=== PATIENT | female | born 1990 | race Caucasian/White ===

== ENCOUNTER 2019-01-20 21:31 | Inpatient (IN) | payer OTHER ==
--- NOTE | 2018-01-22 21:30 | NUR ---
STATED ABLE TO PASS GAS. ENCOURAGE TO AMBULANCE MORE. Addendum: 01/23/19 at 0302 by Umm Thorpe LVN PLEASE DISREGARD THIS CHARTING, WRONG TIME AND DATE OF ENTRY.
[~2019-01-20] VITALS: Ht 157.5 cm; Wt 76.2 kg
[2019-01-20 21:45] VITALS: BP 132/90
--- NOTE | 2019-01-20 21:45 | NUR ---
TO LOBBY A/W BED AMBULATORY
--- NOTE | 2019-01-20 22:25 | NUR ---
PT TAKEN TO BED 3
--- NOTE | 2019-01-20 22:37 | NUR ---
28/F PRESENTS TO ED, C/O EPIGASTRIC PAIN, X2 DAYS. DENIES FEVER/CHILLS, N/V/D, CONSTIPATION. PT ALSO C/O CHRONIC MID AND LOWER BACK PAIN, X1 YEAR, WORSENING RECENTLY. PT AWAKE AND ALERT, SKIN NORMAL COLOR WARM AND DRY, RR EVEN AND UNLABORED. ABD SOFT ROUND TENDER TO EPIGASTRIC AREA. DENIES HX OR RX.
[2019-01-20 23:03] LABS: APPEARANCE,URINE CLEAR (CLEAR); BILIRUBIN,URINE NEGATIVE (NEGATIVE); BLOOD, URINE 3+ (NEGATIVE); COLOR,URINE YELLOW (YELLOW); LEUKOCYTE ESTERASE ,URINE NEGATIVE (NEGATIVE); NITRITE, URINE NEGATIVE (NEGATIVE); UGLUCOSE NEGATIVE (NEGATIVE)
[2019-01-20 23:18] LABS: WBC,URINE 0-5 /HPF (0-5)
--- NOTE | 2019-01-20 23:26 | NUR ---
PT LAYING IN BED, RR EVEN AND UNLABORED. VSS. REPORTS TOLERABLE EPIGASTRIC AND BACK PAIN AT THIS TIME. ALL NEEDS MET AT THIS TIME.
--- NOTE | 2019-01-20 23:26 | NUR ---
Dr. Newby examining patient.
[2019-01-20] MEDS ORDERED: MORPHINE SULFATE 4 MG/ML SYR IVP ONE (23:35)
[2019-01-20] MEDS ORDERED: ONDANSETRON 4 MG/2 ML VIAL IVP ONE (23:35)
[2019-01-20 23:49] LABS: BASOPHILS % (AUTO) 0.4 % (0.0-2.0); EOSINOPHILS # (AUTO) 0.2 K/uL (0-0.4); EOSINOPHILS % (AUTO) 1.8 % (0.0-4.0); HEMATOCRIT 40.5 % (36-48); HEMOGLOBIN 13.7 g/dL (12.0-16.0); LYMPHOCYTES # (AUTO) 2.9 K/uL (2.5-16.5); LYMPHOCYTES % (AUTO) 34.1 % (20.5-51.1); MEAN CORPUSCULAR HEMOGLOBIN 31 pg (27-31); MEAN CORPUSCULAR HGB CONC 34 g/dL (33-37); MEAN CORPUSCULAR VOLUME 90.6 fL (80-94); MONOCYTES # (AUTO) 0.5 K/uL (0.8-1.0); MONOCYTES % (AUTO) 6.1 % (1.7-9.3); NEUTROPHILS # (AUTO) 4.9 K/uL (1.8-7.7); NEUTROPHILS % (AUTO) 57.6 % (42.2-75.2); PLATELET COUNT (AUTO) 199 K/uL (140-450); RED BLOOD CELL COUNT(AUTO) 4.47 MIL/uL (4.20-5.40); RED CELL DISTRIBUTION WIDTH 12.6 % (11.6-13.7); WHITE BLOOD COUNT (AUTO) 8.5 K/uL (4.8-10.8)
[2019-01-20 23:58] LABS: CARBON DIOXIDE 28.6 mmol/L (21-32); CREATININE 0.6 mg/dL (0.6-1.3); POTASSIUM 4.6 mmol/L (3.5-5.1)
[2019-01-21 00:04] LABS: ALBUMIN 4.2 g/dL (3.4-5.0); TOTAL BILIRUBIN 0.6 mg/dL (0.0-1.0)
[2019-01-21] MEDS ORDERED: PIPERACILLIN/TAZOBACTAM 3.375 GM in DEXTROSE 5% 50 ML IV ONE (01:05)
[2019-01-21] MEDS ORDERED: PIPERACILLIN/TAZOBACTAM 3.375 GM VIAL IV ONE ×3 (01:08→05:28)
[2019-01-21] MEDS: DEXT 5% / NACL 0.45% 1,000 ML IV SCH ×3 (01:37→19:25)
--- NOTE | 2019-01-21 01:50 | NUR ---
PT LAYING IN BED, RR EVEN AND UNLABORED. REPORTS 4/10 EPIGASTRIC PAIN AT THIS TIME, WILL ENDORSED TO MST RN. ALL NEEDS MET.
[2019-01-21] MEDS ORDERED: POTASSIUM CHLORIDE 10 MEQ TABER PO PRN (01:55)
[2019-01-21] MEDS ORDERED: LORazepam 2 MG/ML VIAL IVP PRN (01:55)
[2019-01-21] MEDS ORDERED: ACETAMINOPHEN 325 MG TAB PO PRN (01:55)
[2019-01-21] MEDS ORDERED: ZOLPIDEM 5 MG TAB PO PRN (01:55)
[2019-01-21] MEDS ORDERED: MAG SULF 2000 MG/WATER PREMIX 50 ML IV PRN (01:55)
[2019-01-21] MEDS ORDERED: MAGNESIUM OXIDE 400 MG TAB PO PRN (01:55)
[2019-01-21] MEDS ORDERED: ONDANSETRON 4 MG/2 ML VIAL IVP PRN (01:55)
--- NOTE | 2019-01-21 01:55 | NUR ---
Patient will be admitted to care of DR FORD. Admited to [facility]. Will go to room 105A. Belongings list completed. Report to OTILIA BAGLEY.
[2019-01-21 02:00] VITALS: BP 135/80
--- NOTE | 2019-01-21 02:02 | NUR ---
RECEIVED FROM ER PER WHEELCHAIR ALERT AND ORIENTED X 4. ROM X 4. CLEAR SPEECH. NO OPEN AREAS TO SKIN. DX. OF CHOLECYSTITIS/CHOLELITHIASIS. CARE PLANS FOR THE NIGHT DISCUSSED WITH HER AND CALL LIGHT USE EXPLAINED. PAIN AT THIS TIME BEARABLE. NO MEDICAL HISTORY. AFEBRILE.
--- NOTE | 2019-01-21 03:10 | NUR ---
PT. SEEN WALK TO RESTROOM INSIDE ROOM WELL WITH NO ASSIST. ROM X 4. REMINDED TO USE CALL LIGHT FOR NAY HELP SHE MAY NEED OR IF IN PAIN. "OK"
[2019-01-21] MEDS: MORPHINE SULFATE 2 MG/ML SYR IVP PRN ×3 (04:28→22:21)
--- NOTE | 2019-01-21 04:28 | NUR ---
PT. REQUESTED FOR PAIN RELIEVER. MEDICATED ORDERED. SLEPT AFTER. NO FURTHER COMPLAINTS DONE. REMINDED NPO EXCEPT MEDICATIONS.
--- NOTE | 2019-01-21 06:57 | NUR ---
SLEEPING BUT WAKES UP EASILY WHEN CALLED BY NAME. A/OX4. ROM X 4. CLEAR SPEECH. WILL ENDORSE TO AM RN FOR CONTINUITY OF CARE. DX. ACUTE CHOLECYSTITIS. WITH SURGICAL CONSULT . Susi OROZCO. IVF SITE INTACT AND NO INFILTRATION. CALL LIGHT WITH IN REACH AT ALL TIMES. ROM X 4.
[2019-01-21] MEDS ORDERED: PIPERACILLIN/TAZOBACTAM 3.375 GM in DEXTROSE 5% 50 ML IV SCH (07:00)
--- NOTE | 2019-01-21 07:00 | NUR ---
RECEIVED REPORT FROM PRODUCT FINISHER NURSE. PT IS AAOX4, NO C/O PAIN AT THIS TIME. IV ON LT AC 20 GA RUNNING IVF PER ORDER. RESPIRATIONS EVEN AND UNLABORED ON RA. ABD SOFT, ACTIVE BS. PT IS AWARE THAT SHE CANNOT HAVE FOOD/NOTHING BY MOUTH EXCEPT MEDICATIONS UNTIL COMES TO DO ASSESSMENT. SKIN IS INTACT, WARM TO TOUCH. PT IS ON FALL RISK PRECAUTIONS, SAFETY MEASURES IN PLACE, CALL LIGHT WITHIN REACH. REVIEWED POC WITH PT, PT VERBALIZED UNDERSTANDING.
[2019-01-21 08:00] VITALS: BP 121/79
--- NOTE | 2019-01-21 08:08 | NUR ---
ADMINISTERED MORPHINE PER ORDER FOR LEVEL 7/10 PAIN TO ABDOMEN, WILL REASSESS WITHIN 1 HOUR.
--- NOTE | 2019-01-21 08:19 | NUR ---
PATIENT HAS BEEN SCREENED AND CATEGORIZED LOW NUTRITION RISK. PATIENT WILL BE SEEN WITHIN 7 DAYS OF ADMISSION. 01/27/[address]
--- NOTE | 2019-01-21 10:05 | NUR ---
PAGED DR. FORD TO GIVE REPORT REGARDING PT'S CONDITION. AWAITING CALL BACK.
[2019-01-21] MEDS ORDERED: HYDROmorphone 2 MG TAB PO PRN (10:45)
[2019-01-21] MEDS: HYDROmorphone PFS 2 MG/ML SYR IVP PRN (10:46)
[2019-01-21] MEDS: PIPERACILLIN/TAZOBACTAM 3.375 GM in DEXTROSE 5% 50 ML IV SCH ×2 (12:49→21:38)
--- NOTE | 2019-01-21 12:50 | NUR ---
ADMINISTERED ZOSYN, PT IS AWARE OF INDICATIONS AND POTENTIAL SIDE EFFECTS. GIVEN ZOFRAN PER ORDER D/T PT'S FEELINGS OF NAUSEA AND VOMITING. WILL REASSESS WITHIN 1 HOUR.
--- NOTE | 2019-01-21 14:54 | NUR ---
Building Maintenance Technician Note: I called patient's son David Campos to obtain information about patient for assessment/discharge. David requested I call him back at 3:30pm today. Addendum: 01/22/19 at 1614 by Areli Leiva SS please disregard above note, wrong patient.
--- NOTE | 2019-01-21 15:50 | NUR ---
PT REPORTS THAT SHE VOMITED 3 TIMES, COLLECTED 100 ML OF DARK, GREEN EMESIS. WILL NOTIFY PHYSICIAN. GIVEN ORAL CARE. PT HAS NO C/O PAIN AT THIS TIME.
[2019-01-21 16:00] VITALS: BP 144/91
--- NOTE | 2019-01-21 17:40 | NUR ---
RECEIVED CALL FROM DR. OROZCO, GIVEN UPDATES ON PT'S CONDITION. PER PHYSICIAN, WILL SEE PT LATER TONIGHT.
--- NOTE | 2019-01-21 19:05 | NUR ---
ENDORSED PT TO SUPERVISOR LOCOMOTIVE NURSE. PT HAS NO SIGNS OF DISTRESS AT THIS TIME.
--- NOTE | 2019-01-21 19:06 | NUR ---
RECD. RESTING IN BED, AWAKE, AOX4. RESPIRATION EVEN AND UNLABORED. IV OF D51/2 NS AT 85 ML/HR INFUSING LEFT AC G20. AMBULATING INDEPENDENTLY TO BR. NO N/V NOTED. ABDOMINAL PAIN 04/03, TOLERABLE BUT WILL CALL NURSE WHEN PAIN INCREASES. PLAN OF CARE FOR THE SHIFT DISCUSSED. VERBALIZED UNDERSTANDING. FAMILY AT THE BEDSIDE.
--- NOTE | 2019-01-21 21:47 | NUR ---
Patient's Plan of Care was discussed and reviewed with POSTAL SERVICE MAIL PROCESSOR: RAVEN DIEHL
[2019-01-21 22:07] VITALS: BP 125/76
--- NOTE | 2019-01-21 23:40 | NUR ---
DR. OROZCO CAME AND SPOKE WITH PATIENT. VERBALLY ORDERED PLATIENT CANE HAVE LOW FAT DINNER AND NPO PAST MIDNIGHT.
--- NOTE | 2019-01-22 00:25 | NUR ---
UNABLE TO SLEEP, MEDICATED WITH AMBIEN 5 MG PO.
--- NOTE | 2019-01-22 01:25 | NUR ---
STILL AWAKE, ADVISED TO GO TO SLEEP.
--- NOTE | 2019-01-22 02:00 | NUR ---
SLEEPING COMFORTABLY IN BED.
[2019-01-22] MEDS: PIPERACILLIN/TAZOBACTAM 3.375 GM in DEXTROSE 5% 50 ML IV SCH ×3 (05:27→22:25)
[2019-01-22] MEDS: DEXT 5% / NACL 0.45% 1,000 ML IV SCH ×2 (05:51→12:48)
[2019-01-22 05:56] VITALS: BP 109/67
[2019-01-22 06:20] LABS: BASOPHILS % (AUTO) 0.3 % (0.0-2.0); EOSINOPHILS # (AUTO) 0.1 K/uL (0-0.4); HEMATOCRIT 38.8 % (36-48); LYMPHOCYTES # (AUTO) 2.4 K/uL (2.5-16.5); LYMPHOCYTES % (AUTO) 33.5 % (20.5-51.1); MEAN CORPUSCULAR HEMOGLOBIN 31 pg (27-31); MEAN CORPUSCULAR HGB CONC 33 g/dL (33-37); MEAN CORPUSCULAR VOLUME 91.7 fL (80-94); MONOCYTES # (AUTO) 0.5 K/uL (0.8-1.0); MONOCYTES % (AUTO) 6.5 % (1.7-9.3); NEUTROPHILS # (AUTO) 4.1 K/uL (1.8-7.7); NEUTROPHILS % (AUTO) 57.7 % (42.2-75.2); PLATELET COUNT (AUTO) 199 K/uL (140-450); RED BLOOD CELL COUNT(AUTO) 4.24 MIL/uL (4.20-5.40); RED CELL DISTRIBUTION WIDTH 12.6 % (11.6-13.7); WHITE BLOOD COUNT (AUTO) 7.2 K/uL (4.8-10.8)
[2019-01-22] MEDS: MORPHINE SULFATE 2 MG/ML SYR IVP PRN (06:32)
--- NOTE | 2019-01-22 07:00 | NUR ---
CONDITION REMAIN STABLE. NPO FOR SURGERY TODAY. ENDORSED TO AM NURSE FOR CONTINUITY OF CARE.
[2019-01-22 07:19] LABS: PROTHROMBIN TIME 9.9 secs (10.8-13.4)
[2019-01-22 07:31] LABS: ANION GAP 10.3 (8-16); CARBON DIOXIDE 30.5 mmol/L (21-32); CREATININE 0.7 mg/dL (0.6-1.3); POTASSIUM 3.8 mmol/L (3.5-5.1); TOTAL BILIRUBIN 0.4 mg/dL (0.0-1.0)
[2019-01-22 07:32] LABS: ALBUMIN 3.6 g/dL (3.4-5.0)
--- NOTE | 2019-01-22 07:44 | NUR ---
RECEIVED HAND OFF REPORT FROM PM RN PT AWAKE IN BED. ALL SAFETY MEASURES IN PLACE PT APPEARS STABLE AND IN NO APPARENT DISTRESS. WILL CONTINUE TO MONITOR
[2019-01-22] MEDS: HYDROmorphone PFS 2 MG/ML SYR IVP PRN (07:58)
[2019-01-22] MEDS ORDERED: ONDANSETRON 4 MG/2 ML VIAL ONE (10:10)
[2019-01-22] MEDS ORDERED: NEOSTIGMINE 1:1000 10 MG/10 ML VIAL ONE (10:10)
[2019-01-22] MEDS ORDERED: ROCURONIUM 50 MG/5 ML VIAL IV ONE (10:10)
[2019-01-22] MEDS ORDERED: SUCCINYLCHOLINE CHLORIDE 200 MG/10 ML VIAL IVP ONE (10:10)
[2019-01-22] MEDS ORDERED: GLYCOPYRROLATE 0.2 MG/ML VIAL ONE (10:10)
[2019-01-22] MEDS ORDERED: PROPOFOL 200 MG/20 ML VIAL IV ONE (10:10)
[2019-01-22] MEDS ORDERED: SEVOFLURANE 250 ML BTL INH ONE (10:10)
[2019-01-22] MEDS ORDERED: KETOROLAC 30 MG/ML VIAL ONE (10:10)
[2019-01-22] MEDS: BUPIVACAINE-MPF/EPI 0.25% 30 ML VIAL INJ ONE ×2 (10:23→12:58)
[2019-01-22] MEDS ORDERED: MEPERIDINE 50 MG/ML SYR ONE (10:25)
[2019-01-22] MEDS ORDERED: MIDAZOLAM 2 MG/2 ML VIAL ONE (10:25)
[2019-01-22] MEDS ORDERED: fentaNYL 0.05 MG/ML VIAL ONE (10:25)
--- NOTE | 2019-01-22 10:34 | NUR ---
PT TAKEN OFF THE UNIT FOR PROCEDURE
[2019-01-22] MEDS: LACTATED RINGERS 1,000 ML IV SCH ×2 (10:52→19:12)
[2019-01-22] MEDS ORDERED: MEPERIDINE 25 MG/ML SYR IVP PRN (10:55)
[2019-01-22] MEDS ORDERED: HYDROmorphone 1 MG/ML AMP IVP PRN (10:55)
[2019-01-22] MEDS ORDERED: diphenhydrAMINE 50 MG/ML VIAL IVP PRN (10:55)
[2019-01-22] MEDS ORDERED: ONDANSETRON 4 MG/2 ML VIAL IVP PRN (10:55)
--- NOTE | 2019-01-22 12:38 | NUR ---
PT ARRIVED BACK ON THE UNIT FROM OR, PT APPEARS STABLE AND IN NO APPARENT DISTRESS. ALL SAFETY MEASURES ARE IN PLACE WILL CONTINUE TO MONITOR. STARTED POST OP VITALS SHEET.
--- NOTE | 2019-01-22 13:36 | NUR ---
PCP Follow-up Appointment ARNOLD contacted Jaclyn from Dr. Carolynn Hart's office to schedule follow up appointment. Per Jaclyn, PCP's office is understaffed and soonest available appointment is 04/17/2019 @ 2592. Jaclyn stated that she will contact office clinician to schedule a sooner appointment with patient, but as of right now, patient is to keep this appointment. ARNOLD put appointment slip in patient's chart to be given at discharge. ARNOLD/JAGDEEP will follow up.
[2019-01-22] MEDS: HYDROmorphone PFS 4 MG/ML SYR IVP PRN ×3 (14:20→23:30)
[2019-01-22 16:30] VITALS: BP 116/64
--- NOTE | 2019-01-22 16:57 | NUR ---
FREQUENT ROUNDING ON PT PT APPEARS STABLE AND IN NO APPARENT DISTRESS. ALL SAFETY MEASURES ARE IN PLACE WILL CONTINUE TO MONITOR.
--- NOTE | 2019-01-22 19:03 | NUR ---
ENDORSED PT TO PM RN PT AWAKE IN BED PT APPEARS STABLE AND IN NO APPARENT DISTRESS. ALL SAFETY MEASURES ARE IN PLACE.
--- NOTE | 2019-01-22 19:04 | NUR ---
RECD. RESTING IN BED, AWAKE, A/OX4. RESPIRATION EVEN AND UNLABORED. IV OF D5 1/2 NS AT 80 ML/HR INFUSING LEFT AC G20. INCISION IN THE ABDOMEN (4) COVERED WITH BAN AID DRESSING, ALL DRY AND INTACT. TOLERATING CLEAR LIQUID, VOIDING WELL, ALREADY AMBULATED FROM BED TO BR. PAIN IN THE ABDOMEN, 04/03. WILL BE MEDICATED ORDERED. ON BILATERAL LEG SEQUENTIALS. PLAN OF CARE FOR THE SHIFT DISCUSSED. VERBALIZED UNDERSTANDING.
--- NOTE | 2019-01-22 21:00 | NUR ---
Patient's Plan of Care was discussed and reviewed with SWIMMING INSTRUCTOR: RAVEN DIEHL
--- NOTE | 2019-01-22 21:30 | NUR ---
STATED ABLE TO PASS GAS, NO BM YET. ENCOURAGED TO AMBULATE MORE.
[2019-01-22] MEDS ORDERED: HYDROmorphone PFS 4 MG/ML SYR ONE (23:05)
[2019-01-23] VITALS: BP 121/74
--- NOTE | 2019-01-23 | NUR ---
SLEEPING COMFORTABLY IN BED.
[2019-01-23] MEDS: DEXT 5% / NACL 0.45% 1,000 ML IV SCH ×2 (00:34→05:18)
[2019-01-23] MEDS: LACTATED RINGERS 1,000 ML IV SCH ×2 (03:32→05:16)
--- NOTE | 2019-01-23 04:00 | NUR ---
INQUIRED IF SHE NEEDS PAIN MEDICATION BUT STATED "I'M OK".
[2019-01-23] MEDS: PIPERACILLIN/TAZOBACTAM 3.375 GM in DEXTROSE 5% 50 ML IV SCH ×2 (05:56→13:00)
--- NOTE | 2019-01-23 06:22 | NUR ---
CONDITION REMAIN STABLE. WILL ENDORSE TO AM NURSE FOR CONTINUITY OF CARE.
[2019-01-23] MEDS ORDERED: HYDROmorphone PFS 2 MG/ML SYR IVP PRN (07:30)
--- NOTE | 2019-01-23 07:45 | NUR ---
RECEIVED HAND OFF REPORT FROM PM RN PT APPEARS STABLE AND IN NO APPARENT DISTRESS. ALL SAFETY MEASURES ARE IN PLACE WILL CONTINUE TO MONITOR
[2019-01-23 08:05] VITALS: BP 152/74
--- NOTE | 2019-01-23 10:34 | NUR ---
FREQUENT ROUNDING ON PT PT APPEARS STABLE AND IN NO APPARENT DISTRESS. ALL SAFETY MEASURES ARE IN PLACE WILL CONTINUE TO MONITOR
[2019-01-23 11:22] VITALS: BP 146/64
[2019-01-23] MEDS ORDERED: HYDR-5122 PO (12:12)
--- NOTE | 2019-01-23 12:45 | NUR ---
REVIEWED DISCHARGE INSTRUCTIONS WITH PATIENT PROVIDED PATIENT WITH FOLLOW UP APPOINTMENT WITH DR. OROZCO ON FEB 05. PROVIDED PT FOLLOW UP APPOINTMENT WITH HER PRIMARY PROVIDER ON FEB 15
--- NOTE | 2019-01-23 13:37 | NUR ---
PT REFUSED IV ANTIBIOTIC PT STATED SHES DOES NOT WANT IT BECAUSE SHES READY TO GO HOME
== END 2019-01-23 15:00 | disposition home or self-care (01) | DRG 263 ==
LOC: MED 21:31 → MTU 01-21 01:33
PROVIDERS: ADMIT Internal Medicine Pulmonary Disease; ATTEND Internal Medicine Pulmonary Disease
PROC: 0FT44ZZ Resection of Gallbladder, Percutaneous Endoscopic Approach (ICD-10-PCS; principal; 2019-01-22 12:15)
DX: K80.00 Calculus of gallbladder with acute cholecystitis without obstruction (principal)
CPT/HCPCS: 36415; 74150; 76705; 80053; 81001; 81025; 82150; 82374; 83690; 84702; 85025; 85610; 85730; 86886; 86900; 86901; 87040; 87081; 88304; 96365; 96375; 99285; J0330; J1170; J1885; J2175; J2250; J2270; J2405; J2543; J2704; J2710; J3010; J3490; J7030; J7060; Q0092